=== PATIENT | female | born 1985 | race Two or more races ===

== ENCOUNTER 2016-10-24 08:17 | Outpatient (CLI) | payer MEDICAID | END 2016-10-24 08:18 | disposition home or self-care (01) | DX: Z34.82 Encounter for supervision of other normal pregnancy, second trimester (principal) ==

== ENCOUNTER 2017-01-17 10:43 | Outpatient (CLI) | payer MEDICAID ==
[2017-01-17 20:27] LABS: HCT - HEMATOCRIT 27.7 % (37.0-47.0); HGB - HEMOGLOBIN 8.7 g/dL (12.0-16.0); MEAN CORPUSCULAR HGB CONC 31.4 g/dL (32.0-36.0); MEAN CORPUSCULAR VOLUME 63.8 fL (81.0-99.0); MEAN PLATELET VOLUME 9.6 fL (7.9-10.8); RED BLOOD COUNT 4.33 10^6/uL (4.20-5.40); RED CELL DISTRIBUTION WIDTH 15.7 % (12.0-15.0); WHITE BLOOD COUNT 8.3 x10^3/uL (4.8-10.8)
== END 2017-01-17 10:44 | disposition home or self-care (01) ==
LOC: LAB.N 10:43
PROVIDERS: ATTEND Obstetrics & Gynecology
DX: Z36 Encounter for antenatal screening of mother (principal)
CPT/HCPCS: 36415; 82950; 86850

== ENCOUNTER 2017-01-27 15:41 | Outpatient (CLI) | payer MEDICAID | END 2017-01-27 15:42 | disposition home or self-care (01) | LOC: LAB.R 15:41 | PROVIDERS: ATTEND Obstetrics & Gynecology | DX: Z36 Encounter for antenatal screening of mother (principal) | CPT/HCPCS: 87081; 87797 ==

== ENCOUNTER 2017-02-06 16:58 | Outpatient (CLI) | payer MEDICAID ==
[2017-02-06 17:26] VITALS: BP 98/63
--- NOTE | 2017-02-07 09:13 | HISTORY & PHYSICAL EXAMINATION ---
DATE OF ADMISSION: 02/06/2017 DIAGNOSES: Patient is a 31-year-old [place]yn[place], 4, para 3, who reported decreased movem ent to Dr. Gunter during her office visit. She has no signs or symptoms of preeclampsia, uterine con tractions, or leakage of fluid. George maneuvers indicate vertex. heart rate tracing category 1, baseline 130-135, accelerations noted, moderate variability; no contractions. Cervix long, thick, and closed (per nursing). ASSESSMENT: A 39-week gestation who reports decreased movement with normal/reactive NST. JOB #: [id number] EXT JOB #:[id number]
== END 2017-02-06 17:39 | disposition home or self-care (01) ==
LOC: OB 16:58 → WFO 16:58
PROVIDERS: ATTEND Obstetrics & Gynecology
DX: O36.8130 Decreased fetal movements, third trimester, not applicable or unspecified (principal); Z3A.39 39 weeks gestation of pregnancy
CPT/HCPCS: 59025

== ENCOUNTER 2017-02-13 01:45 | Outpatient (CLI) | payer MEDICAID ==
[2017-02-13 02:05] VITALS: BP 123/81
== END 2017-02-13 03:40 | disposition home or self-care (01) ==
LOC: WFO 01:45 → OB 01:46 → WFO 03:40
PROVIDERS: ATTEND Obstetrics & Gynecology
DX: Z34.93 Encounter for supervision of normal pregnancy, unspecified, third trimester (principal)
CPT/HCPCS: 99213

== ENCOUNTER 2017-02-13 15:40 | Inpatient (IN) | payer MEDICAID ==
[2017-02-13] MEDS ORDERED: PENICILLIN G POTASSIUM 5,000,000 UNIT in SODIUM CHLORIDE 0.9% MINIBAG 100 ML IV ONE (16:00)
[2017-02-13] MEDS ORDERED: SODIUM CHLORIDE FLUSH 0.9% 10 ML SYRINGE IVP PRN ×2 (16:08→22:55)
[2017-02-13] MEDS: LACTATED RINGERS 1,000 ML IV SCH ×2 (16:30→19:23)
[2017-02-13] MEDS ORDERED: fent/BUPIV 2 MCG/0.125% 250 ML EP ONE (17:11)
[2017-02-13 17:30] LABS: BASOPHILS % (AUTO) 0.4 %; EOSINOPHILS # (AUTO) 0.1 10^3/uL (0.0-0.7); EOSINOPHILS % (AUTO) 0.8 %; HCT - HEMATOCRIT 29.8 % (37.0-47.0); HGB - HEMOGLOBIN 9.6 g/dL (12.0-16.0); LYMPHOCYTES # (AUTO) 1.9 10^3/uL (1.5-3.5); LYMPHOCYTES % (AUTO) 17.4 %; MEAN CORPUSCULAR HEMOGLOBIN 20.1 pg (27.0-31.0); MEAN CORPUSCULAR HGB CONC 32.2 g/dL (32.0-36.0); MEAN CORPUSCULAR VOLUME 62.2 fL (81.0-99.0); MEAN PLATELET VOLUME 10.4 fL (7.9-10.8); MONOCYTES # (AUTO) 0.6 10^3/uL (0.0-1.0); MONOCYTES % (AUTO) 5.2 %; NEUTROPHILS # (AUTO) 8.1 10^3/uL (1.5-6.6); NEUTROPHILS % (AUTO) 76.2 %; NUCLEATED RED BLOOD CELLS AUTO 0.1 /100WBC; RED BLOOD COUNT 4.79 10^6/uL (4.20-5.40); RED CELL DISTRIBUTION WIDTH 15.4 % (12.0-15.0); UNCORRECTED WHITE BLOOD COUNT 10.7 x10^3/uL; WHITE BLOOD COUNT 10.7 x10^3/uL (4.8-10.8)
[2017-02-13 17:58] LABS: PLATELET ESTIMATE, MANUAL NORMAL (130-450,000) (NORMAL)
[2017-02-13] MEDS ORDERED: ONDANSETRON 4 MG/2 ML VIAL IVP PRN (18:17)
[2017-02-13] MEDS ORDERED: NALBUPHINE 20 MG/ML AMP IVP PRN (18:17)
[2017-02-13] MEDS ORDERED: NALOXONE 0.4 MG/ML VIAL IVP PRN (18:17)
[2017-02-13] MEDS ORDERED: METOCLOPRAMIDE 10 MG/2 ML VIAL IVP PRN (18:17)
[2017-02-13] MEDS ORDERED: LACTATED RINGERS 500 ML IV ONE (18:17)
[2017-02-13] MEDS ORDERED: fent/BUPIV 2 MCG/0.125% 250 ML EP PRN (18:17)
[2017-02-13] MEDS ORDERED: diphenhydrAMINE INJ 50 MG/ML VIAL IVP PRN (18:17)
[2017-02-13] MEDS ORDERED: ePHEDrine 50 MG/ML AMP IVP PRN (18:17)
[2017-02-13] MEDS ORDERED: LIDOCAINE 1% 50 ML MDV ONE (19:36)
[2017-02-13] MEDS ORDERED: MINERAL OIL LIGHT 10 ML MC ONE (19:36)
[2017-02-13] MEDS ORDERED: OXYTOCIN/LACTATED RINGERS 250 ML IV ONE (19:38)
[2017-02-13] MEDS ORDERED: PENICILLIN G POTASSIUM 2,500,000 UNIT in SODIUM CHLORIDE 0.9% 100ML 100 ML IV SCH (21:00)
--- NOTE | 2017-02-13 22:36 | PROVIDER PROGRESS NOTE ---
Labor Progress Note - Instructions [place]/Slash: -Left hand click circles element as positive or present. -Right hand click slashes element as negative or not present. - Uterine Monitoring Uterine Monitoring Mode: positive: External toco, Palpation Contraction Frequency (min/apart): Q 4-5 mild Contraction Intensity: positive: Mild to moderate Uterine Resting Tone: positive: Soft - Monitoring Monitor Mode: positive: External ultrasound Heart Rate Baseline: 130 Heart Rate Variability: positive: Moderate (6-25 bmp) Accelerations: positive: Present, 15x15 Decelerations: positive: None Strip Review: positive: Category I - Vaginal Exam Dilation (in cm): 8 Effacement (%): 80% Station: positive: -3 Cervical Position: positive: Midposition - Labor Progress Note Labor Progress Note/Additional Text: With maternal position shift head in no longer engaged. Bedside US confirms presentation is still vertex. CAT 1 FHT Tracing. Contraction judged inadequate and augmentation started.
[2017-02-13] MEDS ORDERED: LACTATED RINGERS 1,000 ML IV SCH (23:00)
--- NOTE | 2017-02-13 23:30 | HISTORY & PHYSICAL EXAMINATION ---
DATE OF ADMISSION: 02/13/2017 DIAGNOSES 1. A 40-week gestation. 2. Entering active phase of labor. 3. GBS positive. 4. Rubella nonimmune. The patient is a 31-year-old 4, para 3-0-0-4 woman, who has had regular car e at the [facility] and is 40 weeks' gestation today based on 11-week ultrasound, s etting the EDC of 02/13. She has been in and out of labor and delivery in the prodrome of labor, and h er last set of exams at 3 a.m. this morning found dilation at 1.5 cm. She began having regular q.5-mi nute contractions at 8 a.m. and has had no suspicion of ruptured membranes. Recheck dilation is 4 cm. She is GBS positive. NO KNOWN DRUG ALLERGIES. STANDARD OBSTETRICAL LABS: Blood type O positive, antibody negative, rubella nonimmune, RPR negative. Urine culture negative. HIV negative. Hepatitis B surface antigen negative. Glucola screen normal 87 . Strep culture positive. GC/ chlamydia negative. PAST OBSTETRICAL HISTORY 1. In 2015, 37-week twin gestation with vacuum delivery. 2. In 2013, 38-week 7-pound 11-ounce male without problems. PAST MEDICAL HISTORY: No chronic disease history; essentially healthy and active. PAST SURGICAL HISTORY: Ankle surgery fracture, uncomplicated. ALLERGIES: NO KNOWN DRUG ALLERGIES. MEDICATIONS 1. vitamins. 2. Iron. FAMILY HISTORY: Type 2 diabetes, mother. Depression, lymphoma, mother. No congenital anomalies, defects, or chromosomal abnormalities noted. SOCIAL HISTORY: High school graduate. Works in [email or web address]. A reformed smoker; prior to pregnanc y smoked approximately 1 pack per day. No drug or alcohol use noted. REVIEW OF SYSTEMS CONSTITUTIONAL: No recent illness, fevers, chills, night sweats. HEENT: Negative. PULMONARY: Negative. CARDIAC: Negative. GASTROINTESTINAL: Negative. No nausea, vomiting. No abdominal pain. GENITOURINARY: Reference HPI and records, essentially negative. MUSCULOSKELETAL: Fractures noted prior. NEUROLOGIC: Negative. SKIN: Negative. PHYSICAL EXAMINATION GENERAL: Well groomed, pleasant. VITAL SIGNS: Temperature 36.1, pulse 86, blood pressure 129/80, respirations 17, pulse oximetry 100%. HEENT: Supple neck. No thyromegaly. Dentition in good repair. Nonicteric sclerae, EOMI. LUNGS: Clear. CARDIAC: Regular. No murmur, no gallop. ABDOMEN: No hepatosplenomegaly. No tenderness. Gravid. UTERUS: Estimated weight to be between 7-1/2 and 8-1/2 pounds, vertex presentation. EXTERNAL HEART TRACING: Baseline 135, moderate variability accels 1 early decel, contractions q .4-5 minutes. EXTERNAL GENITALIA: No lesions. VAGINA: No blood or discharge. CERVIX: 5 cm, 80% to 90% effaced, 0 station. BONY PELVIS: Adequate for 8-1/2 pound fetus. No AP contracture, blunt spines. NEUROLOGIC: Grossly intact. No clonus. SURVEY OF SKIN: No lesions; decorative tattoo. LABORATORY: CBC pending. ASSESSMENT: The patient is approaching the active phase of labor. She is doing well currently but req uests epidural. heart tracing is category 1. Anticipate pelvis is adequate for estimated size. Patient is GBS positive and will begin penicillin per GBS protocol. PLAN 1. Admit. 2. GBS prophylaxis. 3. Epidural. 4. Supportive care. JOB #: [id number] EXT JOB #:[id number]
[2017-02-13] MEDS ORDERED: OXYTOCIN/LACTATED RINGERS 250 ML IV SCH (23:45)
--- NOTE | 2017-02-14 01:00 | DELIVERY NOTE ---
Delivery Note - Instructions [place]/Slash: -Left hand click circles element as positive or present. -Right hand click slashes element as negative or not present. - Labor Labor: positive: Spontaneous, Augmented by ARM - Delivery Method Delivery Method: positive: Vacuum assist - Presentation Presentation: positive: LOP - left occiput posterior - Nuchal Cord Nuchal Cord: positive: Present (Tight Nuchal Cord Divided on Perineum to Fascilitate Shoulder [place]) - Anesthetic Anesthetic Type: - Amniotic Fluid Description Amniotic Fluid Description: positive: Clear, Foul odor - Vacuum Use Indication for Vacuum Use: positive: Suspicion of immediate or potential compromise (Bradycardia) Type of Vacuum Cup: positive: Other (Kiwi Rigid Cup) Vacuum Extraction: positive: Successful (Rotation from LOP to OA w Descent) Number of pop-offs: 0 (Pressure always in green zone) - Episiotomy Type Episiotomy Type: positive: None - Laceration Laceration: positive: None, Other (L Labial Hematoma) - Delivery Outcome Delivery Outcome: positive: Livebirth - : positive: Placed in direct skin contact with mother, Bulb syringe [place] sex: positive: Male - Cord Cord: positive: 3 vessels - Placenta Placenta: positive: Intact (Grade 2), Other (Foul Smell Cultures Taken from Chorionic Membranes) - Estimated Blood Loss Estimated Blood Loss (in cc): 600 - Post Delivery Events Post Delivery Events: positive: Other (ICE to Labia; Close observation; Cytotech 800 mcg per rectum)
[2017-02-14] MEDS ORDERED: fentaNYL 100 MCG/2 ML VIAL ONE (01:01)
[2017-02-14] MEDS ORDERED: OXYTOCIN/LACTATED RINGERS 250 ML IV ONE (01:06)
[2017-02-14] MEDS ORDERED: miSOPROStol 200 MCG TABLET PR SCH (01:12)
[2017-02-14] MEDS ORDERED: fentaNYL 100 MCG/2 ML VIAL IVP PRN ×2 (01:13→19:11)
[2017-02-14 01:29] LABS: BASOPHILS # (AUTO) 0.1 10^3/uL (0.0-0.1); BASOPHILS % (AUTO) 0.5 %; EOSINOPHILS # (AUTO) 0.1 10^3/uL (0.0-0.7); EOSINOPHILS % (AUTO) 0.6 %; HCT - HEMATOCRIT 25.8 % (37.0-47.0); HGB - HEMOGLOBIN 8.4 g/dL (12.0-16.0); LYMPHOCYTES % (AUTO) 15.1 %; MEAN CORPUSCULAR HGB CONC 32.6 g/dL (32.0-36.0); MEAN PLATELET VOLUME 9.9 fL (7.9-10.8); MONOCYTES # (AUTO) 0.7 10^3/uL (0.0-1.0); MONOCYTES % (AUTO) 5.1 %; NEUTROPHILS # (AUTO) 10.4 10^3/uL (1.5-6.6); NEUTROPHILS % (AUTO) 78.7 %; RED BLOOD COUNT 4.21 10^6/uL (4.20-5.40); RED CELL DISTRIBUTION WIDTH 15.1 % (12.0-15.0); UNCORRECTED WHITE BLOOD COUNT 13.2 x10^3/uL; WHITE BLOOD COUNT 13.2 x10^3/uL (4.8-10.8)
[2017-02-14 01:30] LABS: MEAN CORPUSCULAR VOLUME 61.3 fL (81.0-99.0)
[2017-02-14] MEDS ORDERED: LACTATED RINGERS 1,000 ML IV SCH ×2 (02:00)
--- NOTE | 2017-02-14 02:48 | PROVIDER PROGRESS NOTE ---
Subjective - General Admit Date: 02/13/17 Procedure Date: 02/14/17 Post Op Days: 0 Procedure Performed: Vaginal Delivery Complicated by L Labial Hematoma & Uterine atony - Review of Systems Wound/Incisions: positive: Other (Hematoma stable size) Drain Type: Pastrana General: positive: Other (Pain Controlled w Epidural) HEENT: positive: No symptoms Pulmonary: positive: No symptoms Cardiovascular: positive: No symptoms Gastrointestinal: positive: No symptoms Genitourinary: positive: Other (Ice Pack in Place, no expansion) Psychiatric: positive: No symptoms Objective - Patient Data Weight: Weight 02/12/17 02/13/17 02/14/17 23:59 23:59 23:59 Weight (kg) 106.594 kg Intake & Output: Intake and Output Totals x24h 02/12/17 02/13/17 02/14/17 23:59 23:59 23:59 Intake Total 75 Output Total 1300 Balance -1225 - Lab Results Lab Results: 02/14/17 01:19 Other Lab Results: Lab Results x24hrs 02/14/17 02/13/17 Range/Units 01:19 16:30 WBC 13.2 H 10.7 (4.8-10.8) x10^3/uL RBC 4.21 4.79 (4.20-5.40) 10^6/uL Hgb 8.4 L 9.6 L (12.0-16.0) g/dL Hct 25.8 L 29.8 L (37.0-47.0) % MCV 61.3 L 62.2 L (81.0-99.0) fL MCH 20.0 L 20.1 L (27.0-31.0) pg MCHC 32.6 32.2 (32.0-36.0) g/dL RDW 15.1 H 15.4 H (12.0-15.0) % Plt Count 188 202 (130-450) 10^3/uL MPV 9.9 10.4 (7.9-10.8) fL Neut # 10.4 H 8.1 H (1.5-6.6) 10^3/uL Lymph # 2.0 1.9 (1.5-3.5) 10^3/uL [place] # 0.7 0.6 (0.0-1.0) 10^3/uL Eos # 0.1 0.1 (0.0-0.7) 10^3/uL Baso # 0.1 0.0 (0.0-0.1) 10^3/uL Absolute Nucleated RBC 0.00 0.01 x10^3/uL Nucleated RBCs 0.0 0.1 /100WBC Manual Slide Review Indicated Platelet Estimate NORMAL (130-450,000) (NORMAL) RBC Morph Micro Appear 1+ ELIPTOCYTES (NORMAL) - Current Medications Current Medications: Current Medications Generic Name Dose Route Start Last Admin Trade Name Freq PRN Reason Stop Dose Admin Ondansetron HCl 4 mg 02/13/17 18:17 02/13/17 21:07 Zofran Inj IVP 4 mg Q6HR PRN Administration Nausea / Vomiting
[2017-02-14] MEDS ORDERED: SODIUM CHLORIDE FLUSH 0.9% 10 ML SYRINGE IVP SCH (06:00)
--- NOTE | 2017-02-14 06:14 | PROVIDER PROGRESS NOTE ---
Subjective - General Admit Date: 02/13/17 Procedure Date: 02/14/17 Post Op Days: 0 Procedure Performed: Vaginal Delivery Complicated by L Labial Hematoma & Uterine atony - Review of Systems Wound/Incisions: positive: Other (Hematoma size & tension decreasing) Drain Type: [place] General: positive: Other (Pain Controlled w Epidural) HEENT: positive: No symptoms Pulmonary: positive: No symptoms Cardiovascular: positive: No symptoms Gastrointestinal: positive: No symptoms Genitourinary: positive: Other (Ice Pack in Place, no expansion) Psychiatric: positive: No symptoms - Other Other Information/Narrative: 1. Continue Ice. 2. DC Epidural when bag finished. 3. Await morning H/H Objective - Patient Data Vital Signs: Vital Signs x48h Temp Pulse Resp BP BP Pulse Ox 02/14/17 04:58 65 19 113/64 100 02/14/17 03:00 67 22 117/73 02/14/17 02:16 72 111/60 99 02/14/17 02:00 80 22 124/81 H 02/14/17 01:45 81 22 109/64 100 02/14/17 01:36 73 22 107/56 L 100 02/14/17 01:31 98.1 F 88 22 118/74 99 02/14/17 01:26 91 22 123/60 02/14/17 01:20 80 24 120/76 100 02/14/17 01:15 83 24 118/76 02/14/17 01:00 91 24 123/73 100 Weight: Weight 02/12/17 02/13/17 02/14/17 23:59 23:59 23:59 Weight (kg) 106.594 kg Intake & Output: Intake and Output Totals x24h 02/12/17 02/13/17 02/14/17 23:59 23:59 23:59 Intake Total 75 Output Total 1300 Balance -1225 - Lab Results Lab Results: 02/14/17 01:19 Other Lab Results: Lab Results x24hrs 02/14/17 02/13/17 02/13/17 Range/Units 01:19 16:30 16:30 WBC 13.2 H 10.7 (4.8-10.8) x10^3/uL RBC 4.21 4.79 (4.20-5.40) 10^6/uL Hgb 8.4 L 9.6 L (12.0-16.0) g/dL Hct 25.8 L 29.8 L (37.0-47.0) % MCV 61.3 L 62.2 L (81.0-99.0) fL MCH 20.0 L 20.1 L (27.0-31.0) pg MCHC 32.6 32.2 (32.0-36.0) g/dL RDW 15.1 H 15.4 H (12.0-15.0) % Plt Count 188 202 (130-450) 10^3/uL MPV 9.9 10.4 (7.9-10.8) fL Neut # 10.4 H 8.1 H (1.5-6.6) 10^3/uL Lymph # 2.0 1.9 (1.5-3.5) 10^3/uL [place] # 0.7 0.6 (0.0-1.0) 10^3/uL Eos # 0.1 0.1 (0.0-0.7) 10^3/uL Baso # 0.1 0.0 (0.0-0.1) 10^3/uL Absolute Nucleated RBC 0.00 0.01 x10^3/uL Nucleated RBCs 0.0 0.1 /100WBC Manual Slide Review Indicated Platelet Estimate NORMAL (130-450,000) (NORMAL) RBC Morph Micro Appear 1+ ELIPTOCYTES (NORMAL) Blood Type O POSITIVE Antibody Screen NEGATIVE Crossmatch IS Only See Detail - Current Medications Current Medications: Current Medications Generic Name Dose Route Start Last Admin Trade Name Keyla PRN Reason Stop Dose Admin Ondansetron HCl 4 mg 02/13/17 18:17 02/13/17 21:07 Zofran Inj IVP 4 mg Q6HR PRN Administration Nausea / Vomiting
--- NOTE | 2017-02-14 06:50 | OPERATIVE REPORT ---
DATE OF SURGERY: 02/14/2017 00:00:00 PRE-DELIVERY DIAGNOSES 1. A 40-week gestation; active phase of labor. 2. Group B strep positive. 3. Rubella nonimmune. POST-DELIVERY DIAGNOSES 1. bradycardia. 2. Left occiput posterior presentation. 3. Tight nuchal cord x1, factor in delivery. 4. Left labial hematoma. 5. Excessive blood loss secondary to uterine atony. 6. A 40-week gestation; active phase of labor. 7. Group B strep positive. 8. Rubella nonimmune. NAME OF PROCEDURE: Low vacuum delivery with rotation from left occiput posterior to occiput posterior , successful delivery of male . SURGEON: Tonio Reece MD, FACOG, FICS ANESTHESIA: ROSMERY Thakur; epidural. COMPLICATIONS 1. Left labial hematoma. 2. Excessive blood loss, 600 mL. ESTIMATED BLOOD LOSS: 600 mL. DRAINS: Pastrana to gravity with approximately 400 mL of clear urine. FINDINGS: On 14 February at 0011 hours, a living male was born weighing 8 pounds 13 ounces and sco ring Apgars of 7 and 9. There were no congenital anomalies or visible trauma. Vacuum cup theresa p laced symmetrically at flexion point. The amniotic fluid at the end had a foul smell, but clear. There was a nuchal cord x1, which was a fa ctor due to being very tight. The cord was 3-vessel configuration. Placenta was delivered intact and grade 2. Cultures taken from chorionic surface. Immediately post-delivery, a left labial hematoma developed that was initially approximately 9 cm x 4 .5 cm with a depth of 4 cm. This was marked with a Sharpie and tracked for expansion. presentation at the time of vacuum application was LOP, which spontaneously rotated to OA with vacuum-aided descent. TECHNIQUE: The patient entered the second stage of labor and began to push with good effort. Descent from 0 to +1 station was slow and she began to complain of some fatigue. With the vertex at +2 station, bradycardia developed ranging from 95-105 and was sustained. This prompted discussion of low vacuum delivery. Risks and benefits were explained. Patient consented. The presentation was assessed and confirmed LOP. At the flexion point, Kiwi rigid cup was placed and pumped to the green zone. The patient pushed with good effort for 3 attempts with descent noted. With descent, the head began to spin clockwise to the OA. On the second series of pushes, the head was at raumatically crowned. There was a tight nuchal cord, which was doubly clamped and divided on the kang neum to facilitate delivery of the shoulders. Shoulders were delivered without difficulty. Foul-smell ing fluid was noted. The fetus was placed on the maternal abdomen for [id number] contact. Stimulati on and bulb syringe was used. responded well. Immediately after delivery, left labial hematoma began to develop. The vagina was inspected and there were no rents or lacerations. Cervix was visualized, and there was no laceration. Shortly after, the placenta was delivered intact. It was inspected and found to be grade 2. Cultures were taken from the amniotic side. Post-delivery, the patient had 2 bouts of gushing bleeding. Uterine massage and Pitocin were used. Cy totec was placed. Pastrana catheter was placed to drain the bladder and also provide anticipated bladder drainage in the immediate course. The hematoma was observed and it expanded slightly, but then there was apparent tamponade. The patien t was uncomfortable and given 50 mcg of fentanyl IV. After this point, epidural was restarted to prov jonh pain relief. We spent approximately an hour observing the hematoma to ensure that it was not expa nding. At that point, Anesthesia and OR crew were sent home. They were present in the hospital from a nother case. JOB #: [id number] EXT JOB #:[id number]
[2017-02-14 07:47] LABS: BASOPHILS # (AUTO) 0.1 10^3/uL (0.0-0.1); BASOPHILS % (AUTO) 0.5 %; EOSINOPHILS # (AUTO) 0.1 10^3/uL (0.0-0.7); EOSINOPHILS % (AUTO) 0.6 %; HCT - HEMATOCRIT 24.6 % (37.0-47.0); LYMPHOCYTES # (AUTO) 1.6 10^3/uL (1.5-3.5); LYMPHOCYTES % (AUTO) 14.7 %; MEAN CORPUSCULAR HEMOGLOBIN 20.1 pg (27.0-31.0); MEAN CORPUSCULAR HGB CONC 32.6 g/dL (32.0-36.0); MEAN CORPUSCULAR VOLUME 61.7 fL (81.0-99.0); MEAN PLATELET VOLUME 8.8 fL (7.9-10.8); MONOCYTES # (AUTO) 0.7 10^3/uL (0.0-1.0); MONOCYTES % (AUTO) 6.1 %; NEUTROPHILS # (AUTO) 8.5 10^3/uL (1.5-6.6); NEUTROPHILS % (AUTO) 78.1 %; NUCLEATED RED BLOOD CELLS AUTO 0.1 /100WBC; RED CELL DISTRIBUTION WIDTH 14.6 % (12.0-15.0); UNCORRECTED WHITE BLOOD COUNT 10.9 x10^3/uL; WHITE BLOOD COUNT 10.9 x10^3/uL (4.8-10.8)
[2017-02-14] MEDS: SODIUM CHLORIDE FLUSH 0.9% 10 ML SYRINGE IVP SCH (11:07)
[2017-02-14] MEDS: HYDROCORTISONE/PRAMOXINE 10 GM PR PRN (11:49)
[2017-02-14] MEDS: IBUPROFEN 600 MG TABLET PO SCH ×2 (11:49→17:59)
[2017-02-14] MEDS: DOCUSATE SODIUM 250 MG CAPSULE PO SCH ×2 (12:53→20:36)
[2017-02-15] MEDS: IBUPROFEN 600 MG TABLET PO SCH ×4 (00:11→18:00)
[2017-02-15] MEDS: ACETAMINOPHEN 325 MG TABLET PO PRN ×4 (05:07→21:41)
[2017-02-15] MEDS ORDERED: DOCUSATE SODIUM 250 MG CAPSULE PO SCH (09:00)
[2017-02-15] MEDS: DOCUSATE SODIUM 250 MG CAPSULE PO SCH ×2 (09:01→21:42)
--- NOTE | 2017-02-15 10:05 | PROVIDER PROGRESS NOTE ---
Subjective - General Admit Date: 02/13/17 Procedure Date: 02/14/17 Post Op Days: 1 Procedure Performed: Vaginal Delivery Complicated by L Labial Hematoma & Uterine atony - Review of Systems Wound/Incisions: positive: Other (Hematoma size & tension decreasing) Drain Type: Pastrana General: positive: Other (Pain Controlled w Epidural) HEENT: positive: No symptoms Pulmonary: positive: No symptoms Cardiovascular: positive: No symptoms Gastrointestinal: positive: No symptoms Genitourinary: positive: Other (Ice Pack in Place, no expansion) Psychiatric: positive: No symptoms Objective - Patient Data Vital Signs: Vital Signs x48h Temp Pulse Resp BP BP Pulse Ox 02/15/17 08:00 96.6 F L 72 16 94/51 L 100 02/15/17 05:00 97.2 F L 65 18 106/58 L 99 Weight: Weight 02/13/17 02/14/17 02/15/17 23:59 23:59 23:59 Weight (kg) 106.594 kg Intake & Output: Intake and Output Totals x24h 02/13/17 02/14/17 02/15/17 23:59 23:59 23:59 Intake Total 75 4088 750 Output Total 1300 4225 1300 Balance -1225 -137 -550 - Lab Results Lab Results: 02/14/17 07:33 - Current Medications Current Medications: Current Medications Generic Name Dose Route Start Last Admin Trade Name Freq PRN Reason Stop Dose Admin Acetaminophen 325 mg 02/14/17 01:08 02/15/17 09:01 Tylenol PO 325 mg Q4HR PRN Administration PAIN Docusate Sodium 250 mg 02/14/17 13:00 02/15/17 09:01 Colace 250mg Capsule PO 250 mg DAILY IQRA Administration Hydrocortisone/Pramoxine 1 spray 02/14/17 10:09 02/14/17 11:49 Epifoam DE 20 spray DAILY PRN Administration PAIN Ibuprofen 600 mg 02/14/17 12:00 02/15/17 06:06 Motrin PO 600 mg Q6HR IQRA Administration Ondansetron HCl 4 mg 02/13/17 18:17 02/13/17 21:07 Zofran Inj IVP 4 mg Q6HR PRN Administration Nausea / Vomiting Sodium Chloride 10 ml 02/13/17 16:08 02/14/17 20:36 Normal Saline Flush 0.9% IVP 10 ml PRN PRN Administration NEEDED PER PROVIDER ORDERS Sodium Chloride 10 ml 02/13/17 22:00 02/14/17 11:07 Normal Saline Flush 0.9% IVP Not Given Q8HR IQRA Exam - Exam Vital Signs: Vital Signs (72 hours) 02/13/17 02/13/17 02/14/17 00:35 15:52 01:00 Temperature 97.0 F L Heart Rate [ 86 91 Monitoring electrodes] Respiratory 17 24 Rate Blood Pressure 119/75 129/80 123/73 [Left Brachial artery] Blood Pressure [Right Brachial artery] O2 Saturation 100 100 02/14/17 02/14/17 02/14/17 01:15 01:20 01:26 Temperature Heart Rate [ 83 80 91 Monitoring electrodes] Respiratory 24 24 22 Rate Blood Pressure [Left Brachial artery] Blood Pressure 118/76 120/76 123/60 [Right Brachial artery] O2 Saturation 100 02/14/17 02/14/17 02/14/17 01:31 01:36 01:45 Temperature 98.1 F Heart Rate [ 88 73 81 Monitoring electrodes] Respiratory 22 22 22 Rate Blood Pressure [Left Brachial artery] Blood Pressure 118/74 107/56 L 109/64 [Right Brachial artery] O2 Saturation 99 100 100 02/14/17 02/14/17 02/14/17 02:00 02:16 03:00 Temperature Heart Rate [ 80 72 67 Monitoring electrodes] Respiratory 22 22 Rate Blood Pressure [Left Brachial artery] Blood Pressure 124/81 H 111/60 117/73 [Right Brachial artery] O2 Saturation 99 02/14/17 02/14/17 02/14/17 04:58 07:36 11:57 Temperature 98.3 F 98.1 F Heart Rate [ 65 84 93 Monitoring electrodes] Respiratory 19 18 20 Rate Blood Pressure [Left Brachial artery] Blood Pressure 113/64 100/60 116/74 [Right Brachial artery] O2 Saturation 100 100 100 02/14/17 02/14/17 02/15/17 16:05 20:15 00:13 Temperature 98.1 F 98.2 F 98.1 F Heart Rate [ 77 79 67 Monitoring electrodes] Respiratory 18 16 16 Rate Blood Pressure 109/63 117/72 100/54 L [Left Brachial artery] Blood Pressure [Right Brachial artery] O2 Saturation 100 100 99 02/15/17 02/15/17 05:00 08:00 Temperature 97.2 F L 96.6 F L Heart Rate [ 65 72 Monitoring electrodes] Respiratory 18 16 Rate Blood Pressure 106/58 L [Left Brachial artery] Blood Pressure 94/51 L [Right Brachial artery] O2 Saturation 99 100 General: Oriented x3 HEENT: Mucous membr. moist/pink Lungs: Clear to auscultation Cardiovascular: Regular rate Abdomen: Normal bowel sounds, Other (Hematoma Stable) Extremities: No edema Neurological: Normal speech Psych/Mental Status: Mental status NL, Mood NL
[2017-02-15] MEDS: NITROFURANTOIN MACRO 100 MG CAPSULE PO SCH (11:37)
[2017-02-15] MEDS: PHENAZOPYRIDINE 100 MG TABLET PO SCH ×2 (13:32→21:41)
--- NOTE | 2017-02-15 13:53 | PROVIDER PROGRESS NOTE ---
Subjective - Prog Note Date Prog Note Date: 02/15/17 Prog Note Time: 13:48 - Subjective Subjective: called to see pt because of swelling on the left mons. also pain 09/06. Nursing placed ice pack with good results. Objective - Vital Signs/Intake & Output Vital Signs: Vital Signs x48h Temp Pulse Resp BP Pulse Ox 02/15/17 08:00 35.9 C L 72 16 94/51 L 100 Intake & Output: Intake & Output 02/12/17 02/13/17 02/14/17 02/15/17 23:59 23:59 23:59 23:59 Intake Total 75 4088 750 Output Total 1300 4225 2900 Balance -4150 -137 -4341 - Objective General Appearance: positive: No acute distress, Alert Comments/Other: mons showes mild swelling fulness palpated on the left with tenderness. - Lab Results Fish Bones: 02/14/17 07:33
[2017-02-15] MEDS: oxyCOD/ACETAMIN 5 MG/325 MG TABLET PO PRN (16:39)
[2017-02-15] MEDS: SODIUM CHLORIDE FLUSH 0.9% 10 ML SYRINGE IVP SCH (20:11)
[2017-02-16] MEDS: HYDROCORTISONE/PRAMOXINE 10 GM PR PRN (00:35)
[2017-02-16] MEDS: IBUPROFEN 600 MG TABLET PO SCH ×4 (00:35→17:57)
[2017-02-16] MEDS: ACETAMINOPHEN 325 MG TABLET PO PRN ×3 (04:49→16:01)
[2017-02-16] MEDS: PHENAZOPYRIDINE 100 MG TABLET PO SCH (05:51)
[2017-02-16] MEDS: DOCUSATE SODIUM 250 MG CAPSULE PO SCH ×2 (11:51→21:03)
--- NOTE | 2017-02-16 14:30 | DISCHARGE SUMMARY ---
DATE OF ADMISSION: 02/13/2017 DATE OF DISCHARGE: 02/17/2017 DIAGNOSES: 1. A 40-week, active labor, GBS positive, rubella immune. 2. bradycardia and in this second stage of labor (60 beats per minute), nuchal cord tight. 3. Foul-smelling vaginal fluid and placental surface, mild chorioamnionitis w + Staph culture. 4. Left labial hematoma. 5. Left occiput posterior presentation spontaneously converting to occiput anterior with vacuum. PROCEDURE: Low vacuum assist with rotation from LOP to CASANDRA; Living fetus. COMPLICATIONS: Left labial hematoma. HISTORY: The patient is a 31-year-old [facility] 4, para 3-0-0-4 woman who at 40-week gestation presented in labor. Reference type written H and P. She was known to be GBS positive. Blood type O positive, rubella nonimmune, RPR negative, hepatitis B surface antigen negative. At the time of presentation, she was dilated to 5 cm and 80% effaced. External monitor was Cat 1 with baseline 135. HOSPITAL COURSE: The patient was admitted and entered the active phase of labor. Epidural anesthetic was uneventfully placed by Addy Marroquin. She smoothly progressed to completion and at 0011 hours on 02/14/2017 a living male infant was born weighing 8 pounds 13 ounces and scoring Apgars of 7 and 9. Descent was somewhat slowed by LOP presentation. In the final minutes of the second stage, unremitting bradycardia was noted in the 60s, with the station still at +2. Kiwi vacuum was applied and there was an uneventful vaginal delivery without any lacerations. Post-delivery, a left labial hematoma developed. Total blood loss was 600 mL, and Cytotec 800 mcg was used to limit bleeding. Careful examination did not find any lacerations or extensions. Postoperatively, mother, child and father all bonded well. Her hematoma was watched and marked to detect any expansion. Ice was applied and the hematoma stayed stable. To facilitate urination, a Pastrana catheter was placed. The patient continued to ice for 24 hours. By day #2, the patient was well and desired ambulation. The size of the hematoma had actually diminished slightly and there was no longer skin tension. We continued Sitz baths and heat. Pastrana catheter was removed. Throughout the day on 16 February there was supportive nursing care. The patient was able to do self-care and infant care functions. She was prepared for discharge. However her pain increased over the afternoon and she was kept another night. On 17 February, the hematoma was confirmed as improved and discharged. Warning signs included fever, excessive vaginal drainage and foul discharge. Additionally, she was instructed that if the hematoma expands or becomes painful , that she should return to the emergency room or our office immediately. Dr. Tonio Correa was also involved and had examined the patient. DISCHARGE MEDICATIONS: 1. vitamins with iron. 2. Motrin 800 mg q.8h. 3. [place] 325/5 one po q4 prn 4 Flagyl 500mg po q12 3. [place] 325/5 1-2 tabs q.4h. p.r.n. 4. Hot sitz baths. 5. Colace 200 mg daily. FOLLOWUP: The patient will have a wound check early next week and routine check in 6 weeks. JOB #: [id number] EXT JOB #:[id number] [email or web address]
[2017-02-16] MEDS: oxyCOD/ACETAMIN 5 MG/325 MG TABLET PO PRN ×2 (16:01→19:48)
[2017-02-16] MEDS: SODIUM CHLORIDE FLUSH 0.9% 10 ML SYRINGE IVP SCH ×2 (19:43→19:44)
[2017-02-17] MEDS: ACETAMINOPHEN 325 MG TABLET PO PRN ×3 (00:41→16:13)
[2017-02-17] MEDS: IBUPROFEN 600 MG TABLET PO SCH ×3 (00:42→12:31)
[2017-02-17] MEDS: oxyCOD/ACETAMIN 5 MG/325 MG TABLET PO PRN ×3 (06:56→16:13)
[2017-02-17] MEDS: DOCUSATE SODIUM 250 MG CAPSULE PO SCH (09:19)
[2017-02-17] MEDS: NITROFURANTOIN MACRO 100 MG CAPSULE PO SCH (09:20)
--- NOTE | 2017-02-17 09:30 | Discharge Plan ---
Discharge Plan Disposition: 01 Home, Self Care Condition: Good Diet: Regular Activity Restrictions: Activity as Tolerated Shower Restrictions: No Driving Restrictions: No No Smoking: If you smoke, Please STOP! Call for help. Follow-up with: Tonio Reece MD [Provider Admit Priv/Credential] -
[2017-02-17 12:00] VITALS: BP 124/81
[2017-02-17] MEDS ORDERED: MEASLES,MUMPS & RUBELLA VACC 0.5 ML VIAL SUBQ ONE (15:59)
[2017-02-17] MEDS: HYDROCORTISONE/PRAMOXINE 10 GM PR PRN (16:44)
--- NOTE | 2017-02-17 17:48 | Labor Flowsheet ---
Labor Flowsheet Datetime Report Generated by CPN: 02/17/2017 17:47 Datetime: 02/17/2017 11:58 VITAL SIGNS NBP Sys/Kary/Mean (mmHg): 124 : 81 : 90 Pulse: 85 COMMUNICATION LaborFlag: Labor Datetime: 02/17/2017 07:36 Temperature (F): 96.4 Temperature (C): 35.8 Temperature (C): 35.8 Datetime: 02/14/2017 20:24 SpO2 (%): 100 Datetime: 02/14/2017 00:10 UTERINE ACTIVITY Monitor Mode: External Frequency (min): 1.5 Quality: Strong Duration (sec): 40-80 Pattern: Tachysystole: > 5 Contractions in 10 Minutes Resting Tone (Palpate): Relaxed ASSESSMENT A Monitor Mode: External US FHR Baseline Rate : 115 Variability: Moderate 6-25 bpm Accelerations: 15X15 Decelerations: Variable Actions for Decelerations: Oxygen Applied Category: Category II Datetime: 02/13/2017 23:59 FHR Baseline Changes: No Baseline Change Datetime: 02/13/2017 23:00 Respirations: 24 Pitocin Checklist: At Least 1 Acceleration of 15 bpm x 15 Seconds in 30 Minutes or Adequate Variabi lity Datetime: 02/13/2017 22:41 Stage of : Labor Datetime: 02/13/2017 21:34 ASSESSMENT B Category: Category I Datetime: 02/13/2017 21:00 Temperature Route: Oral Datetime: 02/13/2017 19:04 Comments: sleep cycle. Mom comfortable yet PATIENT CARE Oxygen Method: Room Air Datetime: 02/13/2017 18:40 Monitor Interventions for UA: [place] Adjusted Contraction Comments: comfortable with epidural Datetime: 02/13/2017 18:10 PAIN Pain Presence: None/Denies Pain Assessment Comments: happy with epidural Datetime: 02/13/2017 17:57 Epidural Procedure Other: Pump Started Anesthesia Comments: see anesthesia notes Datetime: 02/13/2017 17:50 Epidural Procedure: Test Dose Datetime: 02/13/2017 17:35 PROCEDURE TIME OUT Procedure Verify: Correct Patient Identity; Correct Side and Site are Marked; Accurate Procedure Co nsent Form; Agreement on Procedure to be Done; Correct Patient Position; Safety Precautions Based on Patient History or Medication Use ANESTHESIA Anesthesia Plans: Epidural Epidural Positioning: Sitting Datetime: 02/13/2017 17:10 Patient Position/Activity: HOB Lowered; Left Tilt Datetime: 02/13/2017 16:52 MEDICATIONS Antibiotics: Penicillin IV (Units) @ [id number]
== END 2017-02-17 17:46 | disposition home or self-care (01) | DRG 774 ==
LOC: WFO 15:40 → OB 15:48 → WFO 15:59 → OB 16:00
PROVIDERS: ADMIT Obstetrics & Gynecology; ATTEND Obstetrics & Gynecology
PROC: 10907ZC Drainage of Amniotic Fluid, Therapeutic from Products of Conception, Via Natural or Artificial Opening (ICD-10-PCS; 2017-02-13)
PROC: 10D07Z6 Extraction of Products of Conception, Vacuum, Via Natural or Artificial Opening (ICD-10-PCS; principal; 2017-02-14)
DX: O99.824 Streptococcus B carrier state complicating childbirth (principal); O72.1 Other immediate postpartum hemorrhage; O41.1230 Chorioamnionitis, third trimester, not applicable or unspecified; O76 Abnormality in fetal heart rate and rhythm complicating labor and delivery; O69.81X0 Labor and delivery complicated by cord around neck, without compression, not applicable or unspecified; O64.0XX0 Obstructed labor due to incomplete rotation of fetal head, not applicable or unspecified; O71.7 Obstetric hematoma of pelvis; B95.8 Unspecified staphylococcus as the cause of diseases classified elsewhere; O75.81 Maternal exhaustion complicating labor and delivery; Z3A.40 40 weeks gestation of pregnancy; Z37.0 Single live birth; Z87.891 Personal history of nicotine dependence
CPT/HCPCS: 36415; 85025; 86850; 86900; 86901; 86920; 87070; 87075; 87076; 87205; 88307; 99212; 99213

== ENCOUNTER 2018-12-30 14:52 | Outpatient (CLI) | payer SELFPAY | END 2018-12-30 14:53 | disposition EMS.NT | LOC: EMS 14:52 | PROVIDERS: ATTEND Surgery | DX: S09.93XA Unspecified injury of face, initial encounter (principal); S10.81XA Abrasion of other specified part of neck, initial encounter; Y04.2XXA Assault by strike against or bumped into by another person, initial encounter ==

== ENCOUNTER 2022-07-21 13:28 | Emergency (ER) | payer MEDICAID ==
--- NOTE | 2022-07-21 14:24 | XRAY Report ---
PROCEDURE: Hand 3 View LT INDICATIONS: hand inj TECHNIQUE: 3 views of the hand(s) acquired. COMPARISON: None FINDINGS: Bones: Nondisplaced fracture of the base of the fourth metacarpal. No suspicious bony lesions. Soft tissues: No suspicious soft tissue calcifications. IMPRESSION: Nondisplaced fracture of the base of the fourth metacarpal. Reviewed by: Dakota Herrera on 07/21/2022 2:23 PM [facility] Approved by: Dakota Herrera on 07/21/2022 2:23 PM [facility] Station ID: [id number]
--- NOTE | 2022-07-21 14:24 | XRAY Report ---
PROCEDURE: Wrist 4 View LT INDICATIONS: Trauma TECHNIQUE: 4 views of the wrist were acquired. COMPARISON: None FINDINGS: Bones: No fractures or dislocations of the wrist. There is a nondisplaced fracture of the base of th e fourth metacarpal. No suspicious bony lesions. Soft tissues: No suspicious soft tissue calcifications. IMPRESSION: Nondisplaced fracture of the base of the fourth metacarpal. Reviewed by: Dakota Herrera on 07/21/2022 2:22 PM [facility] Approved by: Dakota Herrera on 07/21/2022 2:22 PM [facility] Station ID: [id number]
[2022-07-21] MEDS ORDERED: HYDROcod/ACETAM 5/325 MG TABLET PO STA ×2 (14:46→15:24)
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
[2022-07-21 15:20] VITALS: BP 125/79
[2022-07-21] MEDS ORDERED: HYDROcod/ACET 5/325 Prepack 4 PO STA (15:24)
== END 2022-07-21 15:38 | disposition home or self-care (01) ==
LOC: ED 13:28
DX: S62.345A Nondisplaced fracture of base of fourth metacarpal bone, left hand, initial encounter for closed fracture (principal); X58.XXXA Exposure to other specified factors, initial encounter; Z87.891 Personal history of nicotine dependence
CPT/HCPCS: 73110; 73130; 99283; 99284; A9270

== ENCOUNTER 2022-08-02 16:26 | Outpatient (CLI) | payer MEDICAID ==
--- NOTE | 2022-08-02 16:36 | XRAY Report ---
PROCEDURE: Hand 3 View LT INDICATIONS: Left hand fracture TECHNIQUE: Three views of the hand(s) acquired. COMPARISON: 07/21/2022 FINDINGS/IMPRESSION: 1.Left 4th metacarpal [place] oriented fracture is less conspicuous with evidence of some interval h ealing changes occurring in the interval since prior study. 2.Study otherwise normal. Reviewed by: Jacob Robert MD on 08/02/2022 3:35 PM [facility] Approved by: Jacob Robert MD on 08/02/2022 3:35 PM [facility] Station ID: [id number]
== END 2022-08-02 16:27 | disposition home or self-care (01) ==
LOC: DI.WOS 16:26
PROVIDERS: ATTEND Orthopaedic Surgery
DX: S62.395D Other fracture of fourth metacarpal bone, left hand, subsequent encounter for fracture with routine healing (principal)

== ENCOUNTER 2023-05-11 11:03 | Outpatient (CLI) | payer OTHER | END 2023-05-11 11:04 | disposition home or self-care (01) | LOC: NS 11:03 | PROVIDERS: ATTEND Physician Assistant | DX: Z71.3 Dietary counseling and surveillance (principal); E66.9 Obesity, unspecified | CPT/HCPCS: 97802 ==

== ENCOUNTER 2023-09-06 08:00 | Outpatient (CLI) | payer MEDICAID, OTHER ==
[2023-09-06 20:43] LABS: BACTERIAL VAGINOSIS DNA POSITIVE (NEGATIVE); CANDIDA GLABRATA DNA NEGATIVE (NEGATIVE); CANDIDA GROUP DNA NEGATIVE (NEGATIVE); CANDIDA KRUSEI DNA NEGATIVE (NEGATIVE); TRICHOMONAS VAGINALIS DNA POSITIVE (NEGATIVE)
== END 2023-09-06 23:59 | disposition home or self-care (01) ==
LOC: LAB.N 08:00
PROVIDERS: ATTEND Physician Assistant
DX: N76.1 Subacute and chronic vaginitis (principal)
CPT/HCPCS: 81514

== ENCOUNTER 2023-09-26 08:00 | Outpatient (CLI) | payer MEDICAID ==
[2023-09-26 21:49] LABS: CHLAMYDIA TRACHOMATIS DNA NEGATIVE (NEGATIVE); NEISSERIA GONORRHOEAE DNA NEGATIVE (NEGATIVE)
[2023-09-26 21:50] LABS: BACTERIAL VAGINOSIS DNA POSITIVE (NEGATIVE); CANDIDA GLABRATA DNA NEGATIVE (NEGATIVE); CANDIDA GROUP DNA NEGATIVE (NEGATIVE); CANDIDA KRUSEI DNA NEGATIVE (NEGATIVE); TRICHOMONAS VAGINALIS DNA NEGATIVE (NEGATIVE)
== END 2023-09-26 23:59 | disposition home or self-care (01) ==
LOC: LAB.WC 08:00
PROVIDERS: ATTEND Nurse Practitioner
DX: N76.1 Subacute and chronic vaginitis (principal)
CPT/HCPCS: 81514; 81599; 87109; 87491; 87591; 87661

== ENCOUNTER 2024-04-25 09:42 | Emergency (ER) | payer MEDICAID ==
[2024-04-25 10:02] VITALS: O2SAT 98
--- NOTE | 2024-04-25 10:18 | ED Physician Documentation ---
PD HPI CHEST PAIN - Stated complaint Stated Complaint: CHEST PX, SOA - Chief complaint Chief Complaint: Cardiac - History obtained from History obtained from: Patient - Additional information Additional information: This is an otherwise healthy 38-year-old woman who presents for the evaluation of chest pain. She has had intermittent chest pain going on for about 2 days and it was much worse last night. It is a stabbing central pain that lasts minutes at a time and is better if she sits upright and takes a deep breath. She is short of breath with it. Denies pedal edema, calf pain, recent travel, history of DVT or PE, or control use. Her mom in her 60s of congestive heart failure. PD PAST MEDICAL HISTORY - Past Medical History Past Medical History: No - Past Surgical History Past Surgical History: No - Present Medications Home Medications: Ambulatory Orders Medication Instructions Recorded Confirmed HYDROcod/ACETAM 5/325 [[place] 5/325] 1 - 2 tab PO Q6H PRN #10 tablet 04/25/24 - Allergies Allergies/Adverse Reactions: Allergies Allergy/AdvReac Type Severity Reaction Status Date / Time No Known Drug Allergies Allergy Verified 07/21/22 13:46 - Social History Does the pt smoke?: No Smoking Status: Former smoker PD ED PE NORMAL - Vitals Vital signs reviewed: Yes - General General: Alert and oriented X 3, No acute distress - Cardiac Cardiac: RRR, No murmur, Other (Pain is not reproducible with pressure on the sternum) - Respiratory Respiratory: No respiratory distress, Clear bilaterally - Abdomen Abdomen: Non tender - Neuro Neuro: Alert and oriented X 3, Normal speech Results - Vitals Vitals: Vital Signs - 24 hr 04/25/24 09:54 Temperature 36.8 C Heart Rate 79 Respiratory 15 Rate Blood Pressure 108/75 O2 Saturation 98 Oxygen O2 Source Room air - EKG (time done) 0955 EKG releavant findings:: EKG personally interpreted by author of this note. Relevant findings are: Rate: Rate (enter#) (75) Rhythm: NSR [place]: Normal Intervals: Normal VT QRS: Normal Ischemia: Normal ST segments - Labs Labs: Laboratory Tests 04/25/24 04/25/24 10:23 10:23 WBC 3.1 L RBC 5.08 Hgb 9.8 L Hct 30.8 L MCV 60.6 L MCH 19.3 L MCHC 31.8 L RDW 15.1 H Plt Count 154 Neut # (Auto) 1.6 Lymph # (Auto) 1.1 L Mobile # (Auto) 0.3 Eos # (Auto) 0.1 Baso # (Auto) 0.0 Absolute Nucleated RBC 0.00 Nucleated RBC % 0.0 Manual Slide Review Indicated RBC Morph Micro Appear 2+ MICROCYTOSIS Sodium 135 Potassium 3.6 Chloride 105 Carbon Dioxide 26 Anion Gap 4.0 L BUN 11 Creatinine 0.5 L Estimated GFR (MDRD) 138 Glucose 90 Calcium 8.6 Total Bilirubin 0.8 AST 15 ALT 18 Alkaline Phosphatase 63 Troponin I High Sens < 2.3 L Total Protein 6.7 Albumin 3.8 Globulin 2.9 Albumin/Globulin Ratio 1.3 Lipase 20 - Rads (name of study) 1v cxr- NAD Relevant Findings:: Final report received, EMP independent interpretation of test PD Medical Decision Making - ED course ED course: She presents with atypical chest pain with negative biomarkers and normal EKG and unremarkable chest x-ray. We trialed a GI cocktail which was relatively ineffective. She is PERC negative with a heart score of 1 for potential family history. There is nothing in the history or physical to suggest dissection. We did discuss her anemia and low white count. She says she has thalassemia trait and that has been worked up in the past. Departure - Departure Disposition: 01 Home, Self Care Clinical Impression: Chest pain Qualifiers: Chest pain type: unspecified Qualified Code(s): R07.9 - Chest pain, unspecified Condition: Good Record reviewed to determine appropriate education?: Yes Instructions: ED Chest Pain NonCardiac Prescriptions: HYDROcod/ACETAM 5/325 [[place] 5/325] 1 - 2 tab PO Q6H PRN #10 tablet PRN Reason: Pain Comments: I sent your prescription electronically to the [facility] pharmacy at the corner of [address] in [place]. Follow-up with your primary care physician, next available appointment, with consideration for referral for stress testing. Return for new or worsening symptoms. I am prescribing a short course of narcotic pain medication for you. These are potentially dangerous and addictive medications that should be used carefully. These medications may constipate you. Take an volb-pyk-mbqhpca stool softener (docusate) twice daily with plenty of water while taking these medications. If you go 24 hours without a bowel movement, take [id number]-imm-[id number] miralax, per package instructions. Do not drink or drive while taking these medications. If you received narcotic or sedating medications while in the emergency department, do not drive for 24 hours. Store this medication in a safe, secure place and out of reach of children. It is a violation of federal law to give or sell this medication to another person or to use in a manner other than prescribed. The ED will not refill narcotic prescriptions, including prescriptions lost or stolen. To dispose of unwanted medications: 1. [facility] provides a drop box for medication in pill form only (no liquids) 8:00 am to 4:30 p.m. Monday-Monday in the lobby of the [facility], [address] [place] [address]. Empty pills into ziplock bag before disposal. Call [phone] for information. 2.[employer] is a free service available to all [facility] residents. Go to [email or web address] Note that many narcotic pain relievers also contain Tylenol/acetaminophen. Please ensure that your total dose of acetaminophen from all sources does not exceed 3 g (3000 mg) per day. Forms: PCP List
[2024-04-25] MEDS: MAG HYDROX/AL HYDROX/SIMETH 30 ML UDC PO STA (10:31)
[2024-04-25] MEDS: LIDOCAINE VISCOUS 2% 15 ML UDC MM STA (10:31)
[2024-04-25 10:32] LABS: BASOPHILS % (AUTO) 0.3 %; EOSINOPHILS # (AUTO) 0.1 10^3/uL (0.0-0.7); EOSINOPHILS % (AUTO) 4.6 %; HCT - HEMATOCRIT 30.8 % (37.0-47.0); HGB - HEMOGLOBIN 9.8 g/dL (12.0-16.0); LYMPHOCYTES # (AUTO) 1.1 10^3/uL (1.5-3.5); LYMPHOCYTES % (AUTO) 34.9 %; MEAN CORPUSCULAR HEMOGLOBIN 19.3 pg (27.0-31.0); MEAN CORPUSCULAR HGB CONC 31.8 g/dL (32.0-36.0); MEAN CORPUSCULAR VOLUME 60.6 fL (81.0-99.0); MONOCYTES # (AUTO) 0.3 10^3/uL (0.0-1.0); MONOCYTES % (AUTO) 8.5 %; NEUTROPHILS # (AUTO) 1.6 10^3/uL (1.5-6.6); NEUTROPHILS % (AUTO) 51.4 %; PLT - PLATELET COUNT 154 10^3/uL (130-450); RED BLOOD COUNT 5.08 10^6/uL (4.20-5.40); RED CELL DISTRIBUTION WIDTH 15.1 % (12.0-15.0); WHITE BLOOD COUNT 3.1 x10^3/uL (4.8-10.8)
[2024-04-25 10:36] LABS: SLIDE REVIEW? Indicated
[2024-04-25 10:49] LABS: ALBUMIN 3.8 g/dL (3.2-5.5); ALBUMIN/GLOBULIN RATIO 1.3 (1.0-2.2); ALKALINE PHOSPHATASE 63 IU/L (42-121); ALT ALANINE AMINOTRANSFERASE 18 IU/L (10-60); AST ASPARTATE AMINOTRANSFERASE 15 IU/L (10-42); BILIRUBIN,TOTAL 0.8 mg/dL (0.2-1.0); BUN - BLOOD UREA NITROGEN 11 mg/dL (6-20); CALCIUM 8.6 mg/dL (8.5-10.3); CARBON DIOXIDE - CO2 26 mmol/L (21-32); CHLORIDE 105 mmol/L (101-111); CREATININE 0.5 mg/dL (0.6-1.3); GFR - MDRD 138 (>89); GLUCOSE 90 mg/dL (74-104); LIPASE 20 U/L (11-82); POTASSIUM 3.6 mmol/L (3.5-4.5); SODIUM 135 mmol/L (135-145); TOTAL PROTEIN 6.7 g/dL (6.4-8.9)
[2024-04-25 10:50] LABS: TROPONIN I HIGH SENSITIVITY < 2.3 ng/L (2.3-14.8)
[2024-04-25 10:51] LABS: RBC MORPHOLOGY (MULTIPLE) 2+ MICROCYTOSIS (NORMAL)
--- NOTE | 2024-04-25 10:58 | XRAY Report ---
PROCEDURE: Chest 1V INDICATIONS: CHEST PAIN TECHNIQUE: One view of the chest was acquired. COMPARISON: None. FINDINGS: Surgical changes and devices: None. Lungs and pleura: No pleural effusions or pneumothorax. Lungs are clear. Mediastinum: Mediastinal contours appear normal. Heart size is normal. Bones and chest wall: No suspicious bony lesions. Overlying soft tissues appear unremarkable. IMPRESSION: No acute cardiopulmonary process. Reviewed by: Naila Alexander MD, PhD on 04/25/2024 10:57 AM PDT Approved by: Naila Alexander MD, PhD on 04/25/2024 10:57 AM PDT Station ID: [id number]
[2024-04-25 11:38] VITALS: BP 114/77
== END 2024-04-25 11:34 | disposition home or self-care (01) ==
LOC: ED 09:42
DX: R07.9 Chest pain, unspecified (principal); D56.3 Thalassemia minor; Z87.891 Personal history of nicotine dependence
CPT/HCPCS: 36415; 71045; 80053; 83690; 84484; 85025; 93005; 99284; A9270